=== PATIENT | female | born 1990 | race Caucasian/White ===

== ENCOUNTER 2016-10-15 02:02 | Emergency (ER) | payer OTHER ==
[~2016-10-15] VITALS: Ht 170.2 cm; Wt 124.0 kg
[~2016-10-15 02:02] MED LIST: ALBUTEROL2.5 MG/3 M IH; AMLODIPINE BESYL5 MG PO; ASPIRIN325 MG PO; BACTRIM,SEPT1 TABLET PO; BENTYL10 MG PO; CARAFATE1 GM PO; CIPRO500 MG PO; CLONAZEPAM0.5 MG PO; COMPAZINE10 MG PO; DELTASONE20 M1 PO; DEPO-PROVER150 MG/ML IM; EPIPEN ADU0.3 MG/0.3 IM; FLAGYL500 MG PO; FLEXERIL10 MG PO; INDOCIN25 MG PO; KLONOPIN0.5 M1 PO; LEVAQUIN500 MG PO; LISINOPRIL-HCT1 EAC3 PO; LISINOPRIL20 MG PO; LITHIUM CARBON450 MG PO; MEDROL DOSEPAK4 MG PO; METOCLOPRAMIDE10 MG PO; METOPROLOL SUCC50 MG PO; METOPROLOL TART25 MG PO; NORCO 5/3251 TABLET PO; ONDANSETRON ODT4 MG PO; OXAYDO5 MG PO; OXYCODONE HCL10 MG PO; PERCOCET 5/31 TABLET PO; PREDNISONE50 MG PO; PRILOSEC40 MG PO; PRINZIDE 20-121 EACH PO; PROAIR HFA8.5 GM IH; PROMETHAZINE HC25 M1 PO; PROPRANOLOL HCL80 M1 PO; PROTONIX40 MG PO; PROVENTIL HFA6.7 GM IH; SAPHRIS10 MG SL; SEROQUEL12.5 MG PO; SEROQUEL300 MG PO; SKELAXIN800 MG PO; TOPAMAX50 MG PO; TORADOL10 MG PO; TRAMADOL HCL50 MG PO; VALIUM5 MG PO; VENTOLIN HFA18 GM IH; WELLBUTRIN SR200 MG PO; WELLBUTRIN75 MG PO; ZOFRAN ODT4 MG PO; ZOFRAN ODT8 MG PO; ZOFRAN4 MG PO; ZOFRAN8 MG PO; [UNRECOGNIZED DRUG - REMARK]
[2016-10-15] MEDS ORDERED: PROMETHAZINE HC25 M1 PO (03:29)
[2016-10-15] MEDS ORDERED: ZITHROMAX250 MG PO (03:29)
[2016-10-15 04:30] VITALS: BP 178/88
== END 2016-10-15 05:04 | disposition home or self-care (01) ==
LOC: EXP 02:02 → EME 02:02 → EXP 05:04
DX: G43.909 Migraine, unspecified, not intractable, without status migrainosus (principal); K02.9 Dental caries, unspecified; I10 Essential (primary) hypertension; F17.200 Nicotine dependence, unspecified, uncomplicated; Z88.0 Allergy status to penicillin
CPT/HCPCS: 99281; 99284; J1885; J2550

== ENCOUNTER 2016-10-31 01:41 | Emergency (ER) | payer OTHER ==
[~2016-10-31] VITALS: Ht 167.6 cm; Wt 123.5 kg
[~2016-10-31 01:41] MED LIST changes: +ZITHROMAX250 MG PO
[2016-10-31 02:14] LABS: HEMATOCRIT 36.3 % (36.0-46.0); MCH 24.9 PG (29.0-34.0); MCHC 31.4 G/DL (30.0-36.0); MCV 79.3 FL (83-99); MEAN PLAT.VOLUME 10.3 uM^3 (9.5-12.4); PLATELET COUNT 358 K/uL (156-360); RBC DIS.WIDTH-CV 15.7 % (11.8-14.6); RBC DIS.WIDTH-SD 44.8 % (39-53); RED BLOOD COUNT 4.58 M/uL (3.80-5.20); WHITE BLOOD COUNT 10.5 K/uL (4.1-10.2)
[2016-10-31 02:25] LABS: CHLORIDE 108 mEq/L (99-109); POTASSIUM 3.8 mEq/L (3.7-5.4); SODIUM 140 mEq/L (136-147)
[2016-10-31 02:28] LABS: GLUCOSE 84 mg/dL (70-99)
[2016-10-31 02:29] LABS: ANION GAP 11 MEQ/L (2-14); TOTAL BILIRUBIN 0.2 mg/dL (0.0-1.0)
[2016-10-31 02:31] LABS: ALKALINE PHOSPHATASE 86 IU/L (3-129); GFR ESTIMATE (CALCULATED) > 59 mL/min/
[2016-10-31 02:32] LABS: UREA NITROGEN (BUN) 12 mg/dL (9-23)
[2016-10-31 02:39] LABS: ADD MIUA? YES; BILIRUBIN NEGATIVE; BLOOD NEGATIVE; COLOR YELLOW ((YELLOW)); GLUCOSE (STRIP) NEGATIVE; KETONES NEGATIVE; LEUKOCYTES NEGATIVE; NITRITE NEGATIVE; PROTEIN (STRIP) 30; SPECIFIC GRAVITY 1.033 (1.000-1.030); UROBILINOGEN 0.2 MG/DL (0.2-1.0)
[2016-10-31 02:41] LABS: QUANTITATIVE HCG < 4.0 MIU/ML
[2016-10-31 02:47] LABS: BACTERIA NONE SEEN /HPF; EPITHELIAL CELLS 2+ /HPF; MUCUS 4+ /LPF; RED BLOOD CELLS 0-5 /HPF (0-5); UCUL ADDED? NO; WHITE BLOOD CELLS 0-5 /HPF (0-5)
[2016-10-31 02:57] LABS: LIPASE 5 U/L (1.0-51.0)
[2016-10-31 03:00] VITALS: BP 179/118
[2016-10-31] MEDS ORDERED: ZOFRAN8 MG PO (03:29)
[2016-10-31] MEDS ORDERED: NORCO 5/3251 TABLET PO (03:29)
[2016-10-31] MEDS ORDERED: BENTYL20 MG PO (03:29)
== END 2016-10-31 05:29 | disposition home or self-care (01) ==
LOC: EME 01:41
DX: R10.11 Right upper quadrant pain (principal); R11.2 Nausea with vomiting, unspecified; E86.0 Dehydration; I10 Essential (primary) hypertension; F17.200 Nicotine dependence, unspecified, uncomplicated
CPT/HCPCS: 74177; 80053; 81003; 83690; 84702; 85027; 99281; 99285; J1885; J2270; J2405; J7030

== ENCOUNTER 2016-12-01 05:06 | Emergency (ER) | payer OTHER ==
[~2016-12-01] VITALS: Ht 167.6 cm; Wt 125.6 kg
[~2016-12-01 05:06] MED LIST changes: +BENTYL20 MG PO
[2016-12-01 05:38] LABS: ADD MIUA? YES; BILIRUBIN NEGATIVE; BLOOD NEGATIVE; COLOR YELLOW ((YELLOW)); GLUCOSE (STRIP) NEGATIVE; KETONES 5; LEUKOCYTES TRACE; NITRITE NEGATIVE; PROTEIN (STRIP) NEGATIVE; SPECIFIC GRAVITY 1.021 (1.000-1.030); UROBILINOGEN 0.2 MG/DL (0.2-1.0)
[2016-12-01 05:44] LABS: BACTERIA NONE SEEN /HPF; EPITHELIAL CELLS 1+ /HPF; MUCUS 1+ /LPF; RED BLOOD CELLS 0-5 /HPF (0-5); UCUL ADDED? NO; WHITE BLOOD CELLS 0-5 /HPF (0-5)
[2016-12-01 05:46] LABS: HEMATOCRIT 34.6 % (36.0-46.0); MCHC 31.2 G/DL (30.0-36.0); MCV 80.1 FL (83-99); PLATELET COUNT 355 K/uL (156-360); RBC DIS.WIDTH-CV 15.5 % (11.8-14.6); RBC DIS.WIDTH-SD 44.8 % (39-53); RED BLOOD COUNT 4.32 M/uL (3.80-5.20); WHITE BLOOD COUNT 7.7 K/uL (4.1-10.2)
[2016-12-01 06:00] LABS: CHLORIDE 106 mEq/L (99-109); POTASSIUM 3.9 mEq/L (3.7-5.4); SODIUM 138 mEq/L (136-147)
[2016-12-01 06:02] LABS: GLUCOSE 96 mg/dL (70-99)
[2016-12-01 06:03] LABS: ANION GAP 9 MEQ/L (2-14)
[2016-12-01 06:04] LABS: TOTAL BILIRUBIN 0.1 mg/dL (0.0-1.0)
[2016-12-01 06:06] LABS: ALKALINE PHOSPHATASE 73 IU/L (3-129); GFR ESTIMATE (CALCULATED) > 59 mL/min/
[2016-12-01 06:07] LABS: UREA NITROGEN (BUN) 10 mg/dL (9-23)
[2016-12-01 06:09] LABS: LIPASE 8 U/L (1.0-51.0)
[2016-12-01 06:15] LABS: QUANTITATIVE HCG < 4.0 MIU/ML
[2016-12-01] MEDS ORDERED: ZOFRAN ODT4 MG PO (06:38)
[2016-12-01 06:53] VITALS: BP 166/96
== END 2016-12-01 06:54 | disposition home or self-care (01) ==
LOC: EME 05:06
PROVIDERS: Emergency Medicine
DX: R10.9 Unspecified abdominal pain (principal); R11.2 Nausea with vomiting, unspecified; I10 Essential (primary) hypertension; K76.0 Fatty (change of) liver, not elsewhere classified; M79.7 Fibromyalgia; F17.200 Nicotine dependence, unspecified, uncomplicated
CPT/HCPCS: 80053; 81003; 83690; 84702; 85027; 99281; 99284

== ENCOUNTER 2016-12-17 16:27 | Emergency (ER) | payer OTHER ==
[~2016-12-17] VITALS: Ht 167.6 cm; Wt 125.0 kg
[2016-12-17 16:52] LABS: HEMATOCRIT 36.9 % (36.0-46.0); MCH 24.3 PG (29.0-34.0); MCHC 30.6 G/DL (30.0-36.0); MCV 79.4 FL (83-99); MEAN PLAT.VOLUME 9.9 uM^3 (9.5-12.4); PLATELET COUNT 326 K/uL (156-360); RBC DIS.WIDTH-CV 16.1 % (11.8-14.6); RBC DIS.WIDTH-SD 45.9 % (39-53); RED BLOOD COUNT 4.65 M/uL (3.80-5.20); WHITE BLOOD COUNT 9.1 K/uL (4.1-10.2)
[2016-12-17 17:04] LABS: CHLORIDE 107 mEq/L (99-109); POTASSIUM 4.1 mEq/L (3.7-5.4); SODIUM 138 mEq/L (136-147)
[2016-12-17 17:06] LABS: GLUCOSE 120 mg/dL (70-99)
[2016-12-17 17:07] LABS: ANION GAP 11 MEQ/L (2-14)
[2016-12-17 17:08] LABS: TOTAL BILIRUBIN 0.2 mg/dL (0.0-1.0)
[2016-12-17 17:09] LABS: ALKALINE PHOSPHATASE 66 IU/L (3-129)
[2016-12-17 17:10] LABS: GFR ESTIMATE (CALCULATED) > 59 mL/min/
[2016-12-17 17:11] LABS: UREA NITROGEN (BUN) 13 mg/dL (9-23)
[2016-12-17 17:13] LABS: LIPASE 3 U/L (1.0-51.0)
[2016-12-17 17:19] LABS: QUANTITATIVE HCG < 4.0 MIU/ML
[2016-12-17 17:23] LABS: ADD MIUA? YES; BILIRUBIN NEGATIVE; BLOOD NEGATIVE; COLOR YELLOW ((YELLOW)); GLUCOSE (STRIP) NEGATIVE; KETONES NEGATIVE; LEUKOCYTES MODERATE; NITRITE NEGATIVE; PROTEIN (STRIP) NEGATIVE; SPECIFIC GRAVITY 1.019 (1.000-1.030); UROBILINOGEN 0.2 MG/DL (0.2-1.0)
[2016-12-17 17:41] LABS: BACTERIA 2+ /HPF; CASTS NONE SEEN /LPF; CRYSTALS PRESENT; EPITHELIAL CELLS 3+ /HPF; MUCUS 1+ /LPF; RED BLOOD CELLS NONE SEEN /HPF (0-5); UCUL ADDED? YES
[2016-12-17 17:42] LABS: AMORPHOUS URATES CRYSTALS 2+
[2016-12-17] MEDS ORDERED: ZOFRAN ODT4 MG PO (18:52)
[2016-12-17] MEDS ORDERED: PERCOCET 5/31 TABLET PO (18:52)
[2016-12-17 19:23] VITALS: BP 175/99
== END 2016-12-17 19:25 | disposition home or self-care (01) ==
LOC: EME 16:27
DX: N83.202 Unspecified ovarian cyst, left side (principal); K57.90 Diverticulosis of intestine, part unspecified, without perforation or abscess without bleeding; R10.31 Right lower quadrant pain; I10 Essential (primary) hypertension; K76.0 Fatty (change of) liver, not elsewhere classified; Z88.0 Allergy status to penicillin; F17.200 Nicotine dependence, unspecified, uncomplicated
CPT/HCPCS: 74177; 80053; 81003; 83690; 84702; 85027; 87086; 99281; 99284; J1885; J2270; J2405; J3010; J7030

== ENCOUNTER 2016-12-24 01:11 | Observation (INO) | payer OTHER ==
[~2016-12-24] VITALS: Ht 167.6 cm; Wt 122.0 kg
[2016-12-24 01:49] LABS: HEMATOCRIT 37.2 % (36.0-46.0); MCH 24.5 PG (29.0-34.0); MCHC 30.9 G/DL (30.0-36.0); MCV 79.3 FL (83-99); MEAN PLAT.VOLUME 9.9 uM^3 (9.5-12.4); PLATELET COUNT 346 K/uL (156-360); RBC DIS.WIDTH-CV 16.1 % (11.8-14.6); RBC DIS.WIDTH-SD 46.6 % (39-53); RED BLOOD COUNT 4.69 M/uL (3.80-5.20); WHITE BLOOD COUNT 13.4 K/uL (4.1-10.2)
[2016-12-24 01:58] LABS: CHLORIDE 108 mEq/L (99-109); POTASSIUM 3.8 mEq/L (3.7-5.4); SODIUM 138 mEq/L (136-147)
[2016-12-24 02:00] LABS: GLUCOSE 177 mg/dL (70-99)
[2016-12-24 02:02] LABS: ANION GAP 12 MEQ/L (2-14)
[2016-12-24 02:04] LABS: ALKALINE PHOSPHATASE 72 IU/L (3-129); GFR ESTIMATE (CALCULATED) > 59 mL/min/
[2016-12-24 02:05] LABS: UREA NITROGEN (BUN) 11 mg/dL (9-23)
[2016-12-24 02:06] LABS: TOTAL BILIRUBIN 0.3 mg/dL (0.0-1.0)
[2016-12-24 02:07] LABS: LIPASE 4 U/L (1.0-51.0)
[2016-12-24 02:13] LABS: QUANTITATIVE HCG < 4.0 MIU/ML
[2016-12-24 02:39] LABS: ADD MIUA? YES; BILIRUBIN SMALL; BLOOD NEGATIVE; COLOR AMBER ((YELLOW)); GLUCOSE (STRIP) NEGATIVE; KETONES 5; LEUKOCYTES TRACE; NITRITE NEGATIVE; PROTEIN (STRIP) 30; SPECIFIC GRAVITY 1.033 (1.000-1.030)
[2016-12-24 03:12] LABS: RED BLOOD CELLS 0-5 /HPF (0-5); WHITE BLOOD CELLS 15-20 /HPF (0-5)
[2016-12-24 03:14] LABS: EPITHELIAL CELLS 2+ /HPF
[2016-12-24 03:15] LABS: BACTERIA 2+ /HPF; CALCIUM OXALATE CRYSTALS RARE /HPF; CASTS NONE SEEN /LPF; CRYSTALS PRESENT; MUCUS 2+ /LPF; UCUL ADDED? YES
[2016-12-24 04:42] LABS: ADD MIUA? NO; BILIRUBIN NEGATIVE; BLOOD NEGATIVE; COLOR YELLOW ((YELLOW)); GLUCOSE (STRIP) NEGATIVE; KETONES NEGATIVE; LEUKOCYTES NEGATIVE; NITRITE NEGATIVE; PROTEIN (STRIP) NEGATIVE; UCUL ADDED? NO; UROBILINOGEN 0.2 MG/DL (0.2-1.0)
[2016-12-24 04:52] LABS: ADD MEDTOX COMMENT Y; AMPHETAMINE PRESUMPTIVE POSITIVE (500 ng/mL); BARBITURATES NEGATIVE (200 ng/mL); BENZODIAZEPINES PRESUMPTIVE POSITIVE (150 ng/mL); COCAINE NEGATIVE (150 ng/mL); INTERNAL CONTROLS VALID? YES; METHADONE NEGATIVE (200 ng/mL); METHAMPHETAMINE NEGATIVE (500 ng/mL); OPIATES (MORPHINE) PRESUMPTIVE POSITIVE (100 ng/mL); OXYCODONE PRESUMPTIVE POSITIVE (100 ng/mL); PHENCYCLIDINE NEGATIVE (25 ng/mL); PROPOXYPHENE NEGATIVE (300 ng/mL); THC CANNABINOIDS PRESUMPTIVE POSITIVE (50 ng/mL); TRICYCLIC ANTIDEPRESSANTS NEGATIVE (300 ng/mL)
[2016-12-24 05:47] VITALS: BP 165/118
[2016-12-24 07:42] LABS: AMPHETAMINES QUANT VALUE 0 NG/ML; BENZODIAZEPINES QUANT VALUE 0 NG/ML
[2016-12-24 07:44] LABS: BENZODIAZEPINES, URINE SCREEN Negative (200 ng/mL)
== END 2016-12-24 05:48 | disposition left against medical advice (07) ==
LOC: EME 01:11 → EDOF 04:04
PROVIDERS: Emergency Medicine; Physician Assistant Medical
DX: A41.9 Sepsis, unspecified organism (principal); N39.0 Urinary tract infection, site not specified; K59.00 Constipation, unspecified; R10.9 Unspecified abdominal pain; K76.0 Fatty (change of) liver, not elsewhere classified; G89.29 Other chronic pain; M79.7 Fibromyalgia; K21.9 Gastro-esophageal reflux disease without esophagitis; I10 Essential (primary) hypertension; F19.90 Other psychoactive substance use, unspecified, uncomplicated; F31.9 Bipolar disorder, unspecified; G43.909 Migraine, unspecified, not intractable, without status migrainosus; F17.200 Nicotine dependence, unspecified, uncomplicated; E66.01 Morbid (severe) obesity due to excess calories; Z68.41 Body mass index [BMI] 40.0-44.9, adult
CPT/HCPCS: 74177; 80053; 81003; 83036; 83605; 83690; 84702; 84999; 85027; 87040; 87086; 93005; 99281; 99285; G0378; J2270; J2405; J3010; J7030; S0028

== ENCOUNTER 2017-03-01 22:15 | Emergency (ER) | payer SELFPAY ==
[~2017-03-01] VITALS: Ht 167.6 cm; Wt 120.6 kg
[2017-03-01 22:54] LABS: HEMATOCRIT 36.9 % (36.0-46.0); MCH 24.6 PG (29.0-34.0); MCHC 30.6 G/DL (30.0-36.0); MCV 80.4 FL (83-99); MEAN PLAT.VOLUME 9.5 uM^3 (9.5-12.4); PLATELET COUNT 358 K/uL (156-360); RBC DIS.WIDTH-CV 15.8 % (11.8-14.6); RBC DIS.WIDTH-SD 45.1 % (39-53); RED BLOOD COUNT 4.59 M/uL (3.80-5.20); WHITE BLOOD COUNT 11.3 K/uL (4.1-10.2)
[2017-03-01 23:01] LABS: CHLORIDE 106 mEq/L (99-109); POTASSIUM 3.8 mEq/L (3.7-5.4); SODIUM 141 mEq/L (136-147)
[2017-03-01 23:04] LABS: GLUCOSE 92 mg/dL (70-99)
[2017-03-01 23:06] LABS: ANION GAP 10 MEQ/L (2-14); TOTAL BILIRUBIN 0.2 mg/dL (0.0-1.0)
[2017-03-01 23:07] LABS: ALKALINE PHOSPHATASE 78 IU/L (3-129); GFR ESTIMATE (CALCULATED) > 59 mL/min/
[2017-03-01 23:08] LABS: UREA NITROGEN (BUN) 9 mg/dL (9-23)
[2017-03-01 23:20] LABS: LIPASE 6 U/L (1.0-51.0)
[2017-03-01 23:21] LABS: QUANTITATIVE HCG < 4.0 MIU/ML
[2017-03-01 23:26] LABS: ADD MIUA? YES; BILIRUBIN NEGATIVE; BLOOD NEGATIVE; COLOR YELLOW ((YELLOW)); GLUCOSE (STRIP) NEGATIVE; KETONES 5; LEUKOCYTES TRACE; NITRITE NEGATIVE; PROTEIN (STRIP) 30; SPECIFIC GRAVITY 1.023 (1.000-1.030)
[2017-03-01 23:52] VITALS: BP 144/85
[2017-03-01 23:52] LABS: BACTERIA 2+ /HPF; CASTS PRESENT /LPF; CRYSTALS PRESENT; EPITHELIAL CELLS 2+ /HPF; MUCUS 3+ /LPF; RED BLOOD CELLS NONE SEEN /HPF (0-5)
[2017-03-01 23:55] LABS: UCUL ADDED? NO; WHITE BLOOD CELLS 0-5 /HPF (0-5)
[2017-03-01 23:57] LABS: AMORPHOUS URATES CRYSTALS 1+; CALCIUM OXALATE CRYSTALS 2+ /HPF
[2017-03-02] MEDS ORDERED: ZOFRAN ODT4 MG PO (00:30)
[2017-03-02] MEDS ORDERED: PERCOCET 5/31 TABLET PO (00:30)
== END 2017-03-02 00:42 | disposition home or self-care (01) ==
LOC: EME 22:15
DX: R10.11 Right upper quadrant pain (principal); K92.0 Hematemesis; K76.9 Liver disease, unspecified; I10 Essential (primary) hypertension; J45.909 Unspecified asthma, uncomplicated; F17.200 Nicotine dependence, unspecified, uncomplicated
CPT/HCPCS: 74177; 80053; 81003; 83690; 84702; 85027; 99281; 99285; J2270; J2405; J7030

== ENCOUNTER → 2017-03-25 | Outpatient (CLI) | payer OTHER | END | disposition home or self-care (01) | LOC: CDC 11:31 | DX: M25.561 Pain in right knee (principal); T84.84XA Pain due to internal orthopedic prosthetic devices, implants and grafts, initial encounter; R94.31 Abnormal electrocardiogram [ECG] [EKG] | CPT/HCPCS: 93000 ==

== ENCOUNTER 2017-04-11 20:40 | Emergency (ER) | payer OTHER ==
[~2017-04-11] VITALS: Ht 167.6 cm; Wt 120.6 kg
[2017-04-11 21:29] LABS: ADD MIUA? YES; BILIRUBIN NEGATIVE; BLOOD NEGATIVE; COLOR YELLOW ((YELLOW)); GLUCOSE (STRIP) NEGATIVE; KETONES NEGATIVE; LEUKOCYTES TRACE; NITRITE NEGATIVE; PROTEIN (STRIP) 30; SPECIFIC GRAVITY 1.026 (1.000-1.030)
[2017-04-11 21:48] LABS: MCH 24.9 PG (29.0-34.0); MCHC 31.4 G/DL (30.0-36.0); MCV 79.3 FL (83-99); MEAN PLAT.VOLUME 9.7 uM^3 (9.5-12.4); PLATELET COUNT 388 K/uL (156-360); RBC DIS.WIDTH-CV 15.9 % (11.8-14.6); RBC DIS.WIDTH-SD 45.7 % (39-53); RED BLOOD COUNT 4.54 M/uL (3.80-5.20); WHITE BLOOD COUNT 9.5 K/uL (4.1-10.2)
[2017-04-11 21:58] LABS: CHLORIDE 109 mEq/L (99-109); POTASSIUM 3.9 mEq/L (3.7-5.4); SODIUM 140 mEq/L (136-147)
[2017-04-11 22:00] LABS: GLUCOSE 99 mg/dL (70-99)
[2017-04-11 22:01] LABS: ANION GAP 7 MEQ/L (2-14)
[2017-04-11 22:02] LABS: TOTAL BILIRUBIN 0.1 mg/dL (0.0-1.0)
[2017-04-11 22:04] LABS: ALKALINE PHOSPHATASE 72 IU/L (3-129); GFR ESTIMATE (CALCULATED) > 59 mL/min/
[2017-04-11 22:05] LABS: BACTERIA 2+ /HPF; CRYSTALS PRESENT; EPITHELIAL CELLS 1+ /HPF; MUCUS 3+ /LPF; RED BLOOD CELLS 0-5 /HPF (0-5); UCUL ADDED? YES; WHITE BLOOD CELLS 0-5 /HPF (0-5)
[2017-04-11 22:05] LABS: UREA NITROGEN (BUN) 9 mg/dL (9-23)
[2017-04-11 22:06] LABS: CALCIUM OXALATE CRYSTALS 1+ /HPF; CASTS PRESENT /LPF; FINE GRANULAR CASTS RARE /LPF; HYALINE CASTS 0-5 /LPF
[2017-04-11 22:13] LABS: QUANTITATIVE HCG < 4.0 MIU/ML
[2017-04-11] MEDS ORDERED: BACTRIM,SEPT1 TABLET PO (23:18)
[2017-04-11] MEDS ORDERED: MOTRIN800 MG PO (23:18)
[2017-04-11] MEDS ORDERED: ULTRAM50 MG PO (23:18)
[2017-04-11 23:57] VITALS: BP 156/118
== END 2017-04-12 00:02 | disposition home or self-care (01) ==
LOC: EME 20:40
PROVIDERS: Nurse Practitioner Family
DX: N39.0 Urinary tract infection, site not specified (principal); R10.9 Unspecified abdominal pain; R11.0 Nausea; I10 Essential (primary) hypertension; M79.7 Fibromyalgia; Z79.891 Long term (current) use of opiate analgesic; F17.200 Nicotine dependence, unspecified, uncomplicated
CPT/HCPCS: 74176; 80053; 81003; 84702; 85027; 87086; 99281; 99284

== ENCOUNTER 2017-04-17 02:29 | Emergency (ER) | payer OTHER ==
[~2017-04-17] VITALS: Ht 167.6 cm; Wt 124.2 kg
[~2017-04-17 02:29] MED LIST changes: +MOTRIN800 MG PO; +ULTRAM50 MG PO
[2017-04-17 02:45] LABS: ADD MIUA? NO; BILIRUBIN NEGATIVE; BLOOD NEGATIVE; COLOR STRAW ((YELLOW)); GLUCOSE (STRIP) NEGATIVE; KETONES NEGATIVE; LEUKOCYTES NEGATIVE; NITRITE NEGATIVE; PROTEIN (STRIP) NEGATIVE; SPECIFIC GRAVITY 1.005 (1.000-1.030); UCUL ADDED? NO; UROBILINOGEN 0.2 MG/DL (0.2-1.0)
[2017-04-17 02:47] LABS: HEMATOCRIT 33.1 % (36.0-46.0); MCH 24.5 PG (29.0-34.0); MCHC 30.5 G/DL (30.0-36.0); MCV 80.3 FL (83-99); MEAN PLAT.VOLUME 9.5 uM^3 (9.5-12.4); PLATELET COUNT 311 K/uL (156-360); RBC DIS.WIDTH-CV 16.1 % (11.8-14.6); RBC DIS.WIDTH-SD 46.7 % (39-53); RED BLOOD COUNT 4.12 M/uL (3.80-5.20)
[2017-04-17 02:59] LABS: CHLORIDE 108 mEq/L (99-109); POTASSIUM 3.7 mEq/L (3.7-5.4); SODIUM 142 mEq/L (136-147)
[2017-04-17 03:01] LABS: GLUCOSE 105 mg/dL (70-99)
[2017-04-17 03:02] LABS: ANION GAP 9 MEQ/L (2-14)
[2017-04-17 03:05] LABS: ALKALINE PHOSPHATASE 67 IU/L (3-129); GFR ESTIMATE (CALCULATED) > 59 mL/min/
[2017-04-17 03:06] LABS: UREA NITROGEN (BUN) 6 mg/dL (9-23)
[2017-04-17 03:14] LABS: QUANTITATIVE HCG < 4.0 MIU/ML
[2017-04-17 03:16] LABS: TOTAL BILIRUBIN 0.2 mg/dL (0.0-1.0)
[2017-04-17] MEDS ORDERED: ZOFRAN4 MG PO (06:21)
[2017-04-17] MEDS ORDERED: TRAMADOL HCL50 MG PO (06:21)
[2017-04-17 06:33] VITALS: BP 198/122
== END 2017-04-17 06:34 | disposition home or self-care (01) ==
LOC: EME 02:29
DX: R10.30 Lower abdominal pain, unspecified (principal); R10.31 Right lower quadrant pain; Z87.442 Personal history of urinary calculi; I10 Essential (primary) hypertension; F17.200 Nicotine dependence, unspecified, uncomplicated
CPT/HCPCS: 74176; 80053; 81003; 84702; 85027; 99281; 99283; J2270

== ENCOUNTER 2017-05-30 22:48 | Emergency (ER) | payer OTHER ==
[~2017-05-30] VITALS: Ht 162.6 cm; Wt 120.4 kg
[2017-05-31] MEDS ORDERED: NAPROSYN500 MG PO (01:03)
[2017-05-31 01:26] VITALS: BP 164/103
== END 2017-05-31 01:29 | disposition home or self-care (01) ==
LOC: EME 22:48 → RME 22:48
DX: M25.552 Pain in left hip (principal); M25.571 Pain in right ankle and joints of right foot; W18.30XA Fall on same level, unspecified, initial encounter; M79.7 Fibromyalgia; J45.909 Unspecified asthma, uncomplicated; I10 Essential (primary) hypertension; F17.200 Nicotine dependence, unspecified, uncomplicated; Z88.0 Allergy status to penicillin; Z88.8 Allergy status to other drugs, medicaments and biological substances
CPT/HCPCS: 72131; 73502; 73610; 74176; 84702; 99281; 99284

== ENCOUNTER 2017-07-12 21:30 | Emergency (ER) | payer OTHER ==
[~2017-07-12] VITALS: Ht 167.6 cm; Wt 122.4 kg
[~2017-07-12 21:30] MED LIST changes: +NAPROSYN500 MG PO
[2017-07-12 21:52] LABS: HEMATOCRIT 37.7 % (36.0-46.0); MCH 25.1 PG (29.0-34.0); MCV 80.7 FL (83-99); MEAN PLAT.VOLUME 9.9 uM^3 (9.5-12.4); PLATELET COUNT 399 K/uL (156-360); RBC DIS.WIDTH-CV 16.1 % (11.8-14.6); RBC DIS.WIDTH-SD 46.7 % (39-53); RED BLOOD COUNT 4.67 M/uL (3.80-5.20); WHITE BLOOD COUNT 9.3 K/uL (4.1-10.2)
[2017-07-12 22:04] LABS: ADD MIUA? YES; BILIRUBIN NEGATIVE; BLOOD NEGATIVE; COLOR YELLOW ((YELLOW)); GLUCOSE (STRIP) NEGATIVE; KETONES NEGATIVE; LEUKOCYTES SMALL; NITRITE NEGATIVE; PROTEIN (STRIP) NEGATIVE; SPECIFIC GRAVITY 1.013 (1.000-1.030); UROBILINOGEN 0.2 MG/DL (0.2-1.0)
[2017-07-12 22:06] LABS: CHLORIDE 108 mEq/L (99-109); POTASSIUM 3.4 mEq/L (3.7-5.4); SODIUM 141 mEq/L (136-147)
[2017-07-12 22:08] LABS: GLUCOSE 102 mg/dL (70-99)
[2017-07-12 22:09] LABS: ANION GAP 10 MEQ/L (2-14)
[2017-07-12 22:10] LABS: TOTAL BILIRUBIN 0.1 mg/dL (0.0-1.0)
[2017-07-12 22:11] LABS: ALKALINE PHOSPHATASE 69 IU/L (3-129)
[2017-07-12 22:12] LABS: GFR ESTIMATE (CALCULATED) > 59 mL/min/
[2017-07-12 22:13] LABS: UREA NITROGEN (BUN) 9 mg/dL (9-23)
[2017-07-12 22:19] LABS: BACTERIA RARE /HPF; EPITHELIAL CELLS 2+ /HPF; MUCUS TRACE /LPF; RED BLOOD CELLS 0-5 /HPF (0-5); UCUL ADDED? YES
[2017-07-12 22:20] LABS: QUANTITATIVE HCG 878.1 MIU/ML
[2017-07-13 01:42] VITALS: BP 150/106
[2017-07-13] MEDS ORDERED: ZOFRAN4 MG PO (01:42)
== END 2017-07-13 01:50 | disposition home or self-care (01) ==
LOC: EXP 21:30 → EME 21:30 → EXP 07-13 01:50
DX: O20.0 Threatened abortion (principal); I10 Essential (primary) hypertension; Z3A.01 Less than 8 weeks gestation of pregnancy; J45.909 Unspecified asthma, uncomplicated; F17.200 Nicotine dependence, unspecified, uncomplicated; Z88.0 Allergy status to penicillin; Z88.8 Allergy status to other drugs, medicaments and biological substances
CPT/HCPCS: 76801; 80053; 81003; 84702; 85027; 87086; 99281; 99284; J2270

== ENCOUNTER 2017-07-16 23:45 | Emergency (ER) | payer OTHER ==
[~2017-07-16] VITALS: Ht 167.6 cm; Wt 124.4 kg
[2017-07-17 00:42] LABS: HEMATOCRIT 35.6 % (36.0-46.0); MCH 25.7 PG (29.0-34.0); MCHC 31.7 G/DL (30.0-36.0); MCV 80.9 FL (83-99); MEAN PLAT.VOLUME 9.7 uM^3 (9.5-12.4); PLATELET COUNT 341 K/uL (156-360); RBC DIS.WIDTH-CV 15.8 % (11.8-14.6); WHITE BLOOD COUNT 10.1 K/uL (4.1-10.2)
[2017-07-17 00:51] LABS: CHLORIDE 106 mEq/L (99-109); SODIUM 137 mEq/L (136-147)
[2017-07-17 00:53] LABS: GLUCOSE 91 mg/dL (70-99)
[2017-07-17 00:54] LABS: ANION GAP 8 MEQ/L (2-14)
[2017-07-17 00:55] LABS: TOTAL BILIRUBIN 0.2 mg/dL (0.0-1.0)
[2017-07-17 00:56] LABS: ALKALINE PHOSPHATASE 65 IU/L (3-129)
[2017-07-17 00:57] LABS: GFR ESTIMATE (CALCULATED) > 59 mL/min/
[2017-07-17 00:58] LABS: UREA NITROGEN (BUN) 9 mg/dL (9-23)
[2017-07-17 01:08] LABS: QUANTITATIVE HCG 2985.1 MIU/ML
[2017-07-17 01:15] LABS: ADD MIUA? YES; BILIRUBIN NEGATIVE; BLOOD NEGATIVE; COLOR YELLOW ((YELLOW)); GLUCOSE (STRIP) NEGATIVE; KETONES NEGATIVE; LEUKOCYTES TRACE; NITRITE NEGATIVE; PROTEIN (STRIP) NEGATIVE; SPECIFIC GRAVITY 1.013 (1.000-1.030); UROBILINOGEN 0.2 MG/DL (0.2-1.0)
[2017-07-17 01:21] LABS: BACTERIA RARE /HPF; EPITHELIAL CELLS 2+ /HPF; HYALINE CASTS 0-5 /LPF; MUCUS 3+ /LPF; RED BLOOD CELLS 0-5 /HPF (0-5); UCUL ADDED? NO; WHITE BLOOD CELLS 0-5 /HPF (0-5)
[2017-07-17 02:32] LABS: LIPASE 6 U/L (1.0-51.0)
[2017-07-17] MEDS ORDERED: ZOFRAN ODT4 MG PO (04:47)
[2017-07-17 05:02] VITALS: BP 128/87
== END 2017-07-17 05:25 | disposition home or self-care (01) ==
LOC: EME 23:45
DX: O26.891 Other specified pregnancy related conditions, first trimester (principal); R10.84 Generalized abdominal pain; O21.9 Vomiting of pregnancy, unspecified; F11.23 Opioid dependence with withdrawal; Z3A.01 Less than 8 weeks gestation of pregnancy; O10.911 Unspecified pre-existing hypertension complicating pregnancy, first trimester; O99.511 Diseases of the respiratory system complicating pregnancy, first trimester; J45.909 Unspecified asthma, uncomplicated; M79.7 Fibromyalgia; O99.331 Smoking (tobacco) complicating pregnancy, first trimester; F17.200 Nicotine dependence, unspecified, uncomplicated; Z88.0 Allergy status to penicillin; Z88.8 Allergy status to other drugs, medicaments and biological substances
CPT/HCPCS: 76705; 76801; 80053; 81003; 83690; 84702; 85027; 99281; 99285; J2270; J2405; J7030

== ENCOUNTER 2017-07-17 10:54 | Emergency (ER) | payer OTHER ==
[~2017-07-17] VITALS: Ht 167.6 cm; Wt 124.4 kg
[2017-07-17 12:27] VITALS: BP 138/89
== END 2017-07-17 12:29 | disposition home or self-care (01) ==
LOC: EME 10:54
DX: O20.0 Threatened abortion (principal); O99.511 Diseases of the respiratory system complicating pregnancy, first trimester; J45.909 Unspecified asthma, uncomplicated; O16.1 Unspecified maternal hypertension, first trimester; O99.611 Diseases of the digestive system complicating pregnancy, first trimester; K76.0 Fatty (change of) liver, not elsewhere classified; O99.89 Other specified diseases and conditions complicating pregnancy, childbirth and the puerperium; M79.7 Fibromyalgia; O99.331 Smoking (tobacco) complicating pregnancy, first trimester; F17.200 Nicotine dependence, unspecified, uncomplicated; Z3A.01 Less than 8 weeks gestation of pregnancy; Z88.0 Allergy status to penicillin
CPT/HCPCS: 99281; 99284

== ENCOUNTER 2017-07-18 12:01 | Emergency (ER) | payer OTHER | END 2017-07-18 12:55 | disposition left against medical advice (07) | LOC: EME 12:01 | DX: O99.89 Other specified diseases and conditions complicating pregnancy, childbirth and the puerperium (principal); R10.30 Lower abdominal pain, unspecified; Z3A.01 Less than 8 weeks gestation of pregnancy; Z53.21 Procedure and treatment not carried out due to patient leaving prior to being seen by health care provider ==

== ENCOUNTER 2017-09-01 23:43 | Emergency (ER) | payer OTHER ==
[~2017-09-01] VITALS: Ht 167.6 cm; Wt 123.4 kg
[2017-09-02] VITALS: BP 191/127
== END 2017-09-02 00:13 | disposition left against medical advice (07) ==
LOC: EME 23:43
DX: R00.0 Tachycardia, unspecified (principal); I10 Essential (primary) hypertension; J06.9 Acute upper respiratory infection, unspecified; J45.909 Unspecified asthma, uncomplicated; M79.7 Fibromyalgia; K76.0 Fatty (change of) liver, not elsewhere classified; F17.200 Nicotine dependence, unspecified, uncomplicated; Z88.0 Allergy status to penicillin; Z88.8 Allergy status to other drugs, medicaments and biological substances
CPT/HCPCS: 80053; 81003; 83690; 84702; 85027; 87502; 87651 90; 99281

== ENCOUNTER 2017-09-13 11:11 | Emergency (ER) | payer OTHER ==
[~2017-09-13] VITALS: Ht 167.6 cm; Wt 120.5 kg
[2017-09-13 11:57] LABS: HEMATOCRIT 37.3 % (36.0-46.0); HEMOGLOBIN 11.7 G/DL (11.9-15.5); MCH 25.3 PG (29.0-34.0); MCHC 31.4 G/DL (30.0-36.0); MCV 80.7 FL (83-99); PLATELET COUNT 358 K/uL (156-360); RBC DIS.WIDTH-CV 15.8 % (11.8-14.6); RBC DIS.WIDTH-SD 46.3 % (39-53); RED BLOOD COUNT 4.62 M/uL (3.80-5.20); WHITE BLOOD COUNT 8.7 K/uL (4.1-10.2)
[2017-09-13 12:08] LABS: ALBUMIN 4.3 g/dL (3.2-4.8); CHLORIDE 110 mEq/L (99-109); POTASSIUM 4.5 mEq/L (3.7-5.4); SODIUM 141 mEq/L (136-147)
[2017-09-13 12:11] LABS: GLUCOSE 115 mg/dL (70-99); TOTAL PROTEIN 7.4 g/dL (6.4-8.3)
[2017-09-13 12:13] LABS: TOTAL BILIRUBIN 0.4 mg/dL (0.0-1.0)
[2017-09-13 12:14] LABS: ALKALINE PHOSPHATASE 60 IU/L (3-129); CREATININE 0.7 mg/dL (0.6-1.3); GFR ESTIMATE (CALCULATED) > 59 mL/min/
[2017-09-13 12:15] LABS: UREA NITROGEN (BUN) 9 mg/dL (9-23)
[2017-09-13 12:16] LABS: AST (GOT) 13 IU/L (2-34)
[2017-09-13 12:17] LABS: ALT (GPT) 9 IU/L (3-49)
[2017-09-13 12:23] LABS: QUANTITATIVE HCG < 4.0 MIU/ML
[2017-09-13 12:26] LABS: APPEARANCE SL.HAZY ((CLEAR)); BILIRUBIN NEGATIVE; BLOOD NEGATIVE; COLOR YELLOW ((YELLOW)); GLUCOSE (STRIP) NEGATIVE; KETONES NEGATIVE; LEUKOCYTES NEGATIVE; NITRITE NEGATIVE; PROTEIN (STRIP) NEGATIVE; SPECIFIC GRAVITY 1.023 (1.000-1.030); UROBILINOGEN 0.2 MG/DL (0.2-1.0)
[2017-09-13 12:31] LABS: BACTERIA RARE /HPF; CALCIUM OXALATE CRYSTALS 2+ /HPF; EPITHELIAL CELLS 1+ /HPF; MUCUS 2+ /LPF; RED BLOOD CELLS 0-5 /HPF (0-5); UCUL ADDED? NO; WHITE BLOOD CELLS 0-5 /HPF (0-5)
[2017-09-13 14:27] LABS: LIPASE 10 U/L (1.0-51.0)
[2017-09-13] MEDS ORDERED: MOTRIN800 MG PO (18:45)
[2017-09-13 19:01] VITALS: BP 147/86
== END 2017-09-13 19:02 | disposition home or self-care (01) ==
LOC: EME 11:11
DX: R10.31 Right lower quadrant pain (principal); R11.2 Nausea with vomiting, unspecified; I10 Essential (primary) hypertension; M79.7 Fibromyalgia; J45.909 Unspecified asthma, uncomplicated; K76.0 Fatty (change of) liver, not elsewhere classified; F17.200 Nicotine dependence, unspecified, uncomplicated; Z90.49 Acquired absence of other specified parts of digestive tract; Z88.0 Allergy status to penicillin; Z88.8 Allergy status to other drugs, medicaments and biological substances
CPT/HCPCS: 74177; 80053; 81003; 83690; 84702; 85027; J1630; J1885; J2405; J7030

== ENCOUNTER 2017-12-03 14:58 | Emergency (ER) | payer OTHER ==
[~2017-12-03] VITALS: Ht 167.6 cm; Wt 121.9 kg
[2017-12-03 15:19] LABS: HEMATOCRIT 38.3 % (36.0-46.0); HEMOGLOBIN 11.9 G/DL (11.9-15.5); MCH 25.3 PG (29.0-34.0); MCHC 31.1 G/DL (30.0-36.0); MCV 81.5 FL (83-99); PLATELET COUNT 352 K/uL (156-360); RBC DIS.WIDTH-CV 15.6 % (11.8-14.6); RBC DIS.WIDTH-SD 46.8 % (39-53); WHITE BLOOD COUNT 7.5 K/uL (4.1-10.2)
[2017-12-03 15:27] LABS: ALBUMIN 4.5 g/dL (3.2-4.8); CHLORIDE 108 mEq/L (99-109); POTASSIUM 4.8 mEq/L (3.7-5.4); SODIUM 141 mEq/L (136-147)
[2017-12-03 15:30] LABS: GLUCOSE 100 mg/dL (70-99); TOTAL PROTEIN 7.6 g/dL (6.4-8.3)
[2017-12-03 15:31] LABS: TOTAL BILIRUBIN 0.2 mg/dL (0.0-1.0)
[2017-12-03 15:33] LABS: ALKALINE PHOSPHATASE 65 IU/L (3-129); CREATININE 0.8 mg/dL (0.6-1.3); GFR ESTIMATE (CALCULATED) > 59 mL/min/
[2017-12-03 15:34] LABS: UREA NITROGEN (BUN) 9 mg/dL (9-23)
[2017-12-03 15:35] LABS: AST (GOT) 12 IU/L (2-34)
[2017-12-03 15:36] LABS: ALT (GPT) 8 IU/L (3-49)
[2017-12-03 15:42] LABS: QUANTITATIVE HCG < 4.0 MIU/ML
[2017-12-03 16:16] LABS: APPEARANCE SL.HAZY ((CLEAR)); BILIRUBIN NEGATIVE; BLOOD NEGATIVE; COLOR YELLOW ((YELLOW)); GLUCOSE (STRIP) NEGATIVE; KETONES NEGATIVE; LEUKOCYTES NEGATIVE; NITRITE NEGATIVE; PROTEIN (STRIP) NEGATIVE; SPECIFIC GRAVITY 1.017 (1.000-1.030); UROBILINOGEN 0.2 MG/DL (0.2-1.0)
[2017-12-03 16:24] LABS: BACTERIA NONE SEEN /HPF; EPITHELIAL CELLS 2+ /HPF; MUCUS TRACE /LPF; UCUL ADDED? NO; WHITE BLOOD CELLS 0-5 /HPF (0-5)
[2017-12-03] MEDS ORDERED: PERCOCET 5/31 TABLET PO (18:55)
[2017-12-03] MEDS ORDERED: BENTYL20 MG PO (18:55)
[2017-12-03 19:46] VITALS: BP 174/104
== END 2017-12-03 19:47 | disposition home or self-care (01) ==
LOC: EME 14:58
DX: R10.11 Right upper quadrant pain (principal); K76.0 Fatty (change of) liver, not elsewhere classified; M79.7 Fibromyalgia; I10 Essential (primary) hypertension; J45.909 Unspecified asthma, uncomplicated; F17.200 Nicotine dependence, unspecified, uncomplicated; Z90.49 Acquired absence of other specified parts of digestive tract; Z88.0 Allergy status to penicillin; Z88.8 Allergy status to other drugs, medicaments and biological substances
CPT/HCPCS: 76705; 80053; 81003; 84702; 85027; 99281; 99284; J3010

== ENCOUNTER 2018-01-12 05:35 | Day surgery (SDC) | payer OTHER ==
[~2018-01-12] VITALS: Ht 167.6 cm; Wt 120.6 kg
[~2018-01-12 05:35] MED LIST changes: +FLOVENT 11120 INHALA IH; +HYDROCHLOROTH12.5 M3 PO; +LAMICTAL200 MG PO; +SINGULAIR10 MG PO
[2018-01-12] MEDS ORDERED: IBUPROFEN800 MG PO (06:47)
[2018-01-12] MEDS ORDERED: ENDOCET 5-3251 EACH PO (06:47)
[2018-01-12 06:57] LABS: ALBUMIN 4.3 G/DL (3.2-4.8); ALKALINE PHOSPHATASE 57 IU/L (3-129); ALT (GPT) 7 IU/L (3-49); AST (GOT) 11 IU/L (2-34); CHLORIDE 106 MEQ/L (99-109); CREATININE 0.8 MG/DL (0.6-1.3); GFR ESTIMATE (CALCULATED) > 59 mL/min/; GLUCOSE 103 mg/dL (70-99); POTASSIUM 3.9 MEQ/L (3.7-5.4); SODIUM 138 MEQ/L (136-147); TOTAL BILIRUBIN 0.4 MG/DL (0.0-1.0); TOTAL PROTEIN 7.6 G/DL (6.4-8.3); UREA NITROGEN (BUN) 10 mg/dL (9-23)
[2018-01-12 07:11] VITALS: BP 172/106
[2018-01-12] MEDS ORDERED: METOPROLOL SUCC25 MG PO (07:23)
[2018-01-12 11:25] VITALS: BP 131/80
[2018-01-12 12:20] VITALS: BP 135/83
== END 2018-01-12 12:55 | disposition home or self-care (01) ==
LOC: SDC 05:35
PROVIDERS: Obstetrics & Gynecology Gynecology
PROC: 0WBN4ZX Excision of Female Perineum, Percutaneous Endoscopic Approach, Diagnostic (ICD-10-PCS; principal; 2018-01-12)
PROC: 3E1P88X Irrigation of Female Reproductive using Irrigating Substance, Via Natural or Artificial Opening Endoscopic, Diagnostic (ICD-10-PCS; principal; 2018-01-12)
PROC: 0DNU4ZZ Release Omentum, Percutaneous Endoscopic Approach (ICD-10-PCS; principal; 2018-01-12)
DX: K66.0 Peritoneal adhesions (postprocedural) (postinfection) (principal); N94.6 Dysmenorrhea, unspecified; R10.2 Pelvic and perineal pain; I10 Essential (primary) hypertension; E66.9 Obesity, unspecified; Z68.41 Body mass index [BMI] 40.0-44.9, adult; J45.909 Unspecified asthma, uncomplicated; Z88.0 Allergy status to penicillin; F17.200 Nicotine dependence, unspecified, uncomplicated
CPT/HCPCS: 80053; 88304; J0131; J0330; J1100; J1170; J1580; J1885; J2250; J2405; J2550; J2710; J3010; J7050; J7643; Q0175; S0020

== ENCOUNTER 2018-02-24 21:53 | Emergency (ER) | payer OTHER ==
[~2018-02-24] VITALS: Ht 167.6 cm; Wt 121.0 kg
[~2018-02-24 21:53] MED LIST changes: +ENDOCET 5-3251 EACH PO; +IBUPROFEN800 MG PO; +METOPROLOL SUCC25 MG PO
[2018-02-24 22:12] LABS: HEMATOCRIT 34.5 % (36.0-46.0); HEMOGLOBIN 11.3 G/DL (11.9-15.5); MCH 26.4 PG (29.0-34.0); MCHC 32.8 G/DL (30.0-36.0); MCV 80.6 FL (83-99); PLATELET COUNT 319 K/uL (156-360); RBC DIS.WIDTH-CV 15.8 % (11.8-14.6); RBC DIS.WIDTH-SD 46.2 % (39-53); RED BLOOD COUNT 4.28 M/uL (3.80-5.20); WHITE BLOOD COUNT 8.9 K/uL (4.1-10.2)
[2018-02-24 22:25] LABS: ALBUMIN 4.1 g/dL (3.2-4.8); CHLORIDE 107 mEq/L (99-109); POTASSIUM 3.7 mEq/L (3.7-5.4); SODIUM 141 mEq/L (136-147)
[2018-02-24 22:27] LABS: GLUCOSE 131 mg/dL (70-99)
[2018-02-24 22:28] LABS: TOTAL PROTEIN 6.9 g/dL (6.4-8.3)
[2018-02-24 22:29] LABS: TOTAL BILIRUBIN 0.1 mg/dL (0.0-1.0)
[2018-02-24 22:30] LABS: QUANTITATIVE HCG 171.6 MIU/ML
[2018-02-24 22:31] LABS: ALKALINE PHOSPHATASE 61 IU/L (3-129); CREATININE 0.8 mg/dL (0.6-1.3); GFR ESTIMATE (CALCULATED) > 59 mL/min/
[2018-02-24 22:32] LABS: UREA NITROGEN (BUN) 9 mg/dL (9-23)
[2018-02-24 22:33] LABS: AST (GOT) 12 IU/L (2-34)
[2018-02-24 22:34] LABS: ALT (GPT) 8 IU/L (3-49)
[2018-02-24 22:35] LABS: APPEARANCE CLOUDY ((CLEAR)); BILIRUBIN NEGATIVE; BLOOD NEGATIVE; COLOR YELLOW ((YELLOW)); GLUCOSE (STRIP) NEGATIVE; KETONES 5; LEUKOCYTES TRACE; NITRITE NEGATIVE; PROTEIN (STRIP) NEGATIVE; SPECIFIC GRAVITY 1.029 (1.000-1.030)
[2018-02-24 22:51] LABS: LIPASE 7 U/L (1.0-51.0)
[2018-02-24 23:27] LABS: RED BLOOD CELLS 0-5 /HPF (0-5)
[2018-02-24 23:28] LABS: EPITHELIAL CELLS NONE SEEN /HPF; MUCUS NONE SEEN /LPF
[2018-02-24 23:30] LABS: BACTERIA NONE SEEN /HPF; UCUL ADDED? YES
[2018-02-25] MEDS ORDERED: MACROBID100 MG PO (01:04)
[2018-02-25] MEDS ORDERED: OXAYDO5 MG PO (01:04)
[2018-02-25] MEDS ORDERED: PROMETHAZINE HC25 M1 PO (01:04)
[2018-02-25 01:35] VITALS: BP 151/115
== END 2018-02-25 01:36 | disposition home or self-care (01) ==
LOC: EME 21:53
DX: O23.41 Unspecified infection of urinary tract in pregnancy, first trimester (principal); Z3A.00 Weeks of gestation of pregnancy not specified; O21.9 Vomiting of pregnancy, unspecified; O10.911 Unspecified pre-existing hypertension complicating pregnancy, first trimester; O99.89 Other specified diseases and conditions complicating pregnancy, childbirth and the puerperium; K21.9 Gastro-esophageal reflux disease without esophagitis; M79.7 Fibromyalgia; O99.331 Smoking (tobacco) complicating pregnancy, first trimester; F17.200 Nicotine dependence, unspecified, uncomplicated; Z90.49 Acquired absence of other specified parts of digestive tract; Z87.442 Personal history of urinary calculi; Z88.0 Allergy status to penicillin; Z91.030 Bee allergy status
CPT/HCPCS: 76770; 76801; 80053; 81003; 83690; 84702; 85027; 87086; 99281; 99284; J2405; J3010; J7030

== ENCOUNTER 2018-03-03 01:56 | Emergency (ER) | payer OTHER ==
[~2018-03-03] VITALS: Ht 167.6 cm; Wt 121.3 kg
[~2018-03-03 01:56] MED LIST changes: +MACROBID100 MG PO
[2018-03-03 02:57] LABS: HEMOGLOBIN 11.3 G/DL (11.9-15.5); MCH 25.7 PG (29.0-34.0); MCHC 31.4 G/DL (30.0-36.0); MCV 81.8 FL (83-99); PLATELET COUNT 323 K/uL (156-360); RBC DIS.WIDTH-CV 15.9 % (11.8-14.6); RBC DIS.WIDTH-SD 47.4 % (39-53)
[2018-03-03 03:08] LABS: CHLORIDE 108 mEq/L (99-109); POTASSIUM 3.8 mEq/L (3.7-5.4); SODIUM 141 mEq/L (136-147)
[2018-03-03 03:08] LABS: APPEARANCE CLOUDY ((CLEAR)); BILIRUBIN NEGATIVE; BLOOD NEGATIVE; COLOR YELLOW ((YELLOW)); GLUCOSE (STRIP) NEGATIVE; KETONES NEGATIVE; LEUKOCYTES TRACE; NITRITE NEGATIVE; PROTEIN (STRIP) NEGATIVE; SPECIFIC GRAVITY 1.018 (1.000-1.030); UROBILINOGEN 0.2 MG/DL (0.2-1.0)
[2018-03-03 03:10] LABS: GLUCOSE 97 mg/dL (70-99)
[2018-03-03 03:13] LABS: BACTERIA NONE SEEN /HPF; EPITHELIAL CELLS 2+ /HPF; MUCUS TRACE /LPF; RED BLOOD CELLS 0-5 /HPF (0-5); UCUL ADDED? NO; WHITE BLOOD CELLS 0-5 /HPF (0-5)
[2018-03-03 03:14] LABS: CREATININE 0.8 mg/dL (0.6-1.3); GFR ESTIMATE (CALCULATED) > 59 mL/min/
[2018-03-03 03:15] LABS: UREA NITROGEN (BUN) 8 mg/dL (9-23)
[2018-03-03 03:24] LABS: QUANTITATIVE HCG 1539.8 MIU/ML
[2018-03-03] MEDS ORDERED: OXAYDO5 MG PO (07:10)
[2018-03-03 07:51] VITALS: BP 148/98
== END 2018-03-03 07:52 | disposition home or self-care (01) ==
LOC: EME 01:56
DX: O34.81 Maternal care for other abnormalities of pelvic organs, first trimester (principal); N83.201 Unspecified ovarian cyst, right side; O21.9 Vomiting of pregnancy, unspecified; G89.29 Other chronic pain; O10.911 Unspecified pre-existing hypertension complicating pregnancy, first trimester; O99.331 Smoking (tobacco) complicating pregnancy, first trimester; J45.909 Unspecified asthma, uncomplicated; Z87.442 Personal history of urinary calculi; F17.200 Nicotine dependence, unspecified, uncomplicated; Z3A.01 Less than 8 weeks gestation of pregnancy
CPT/HCPCS: 76801; 80048; 81003; 84702; 85027; 99281; 99285

== ENCOUNTER 2018-03-30 02:36 | Emergency (ER) | payer OTHER ==
[~2018-03-30] VITALS: Ht 167.6 cm; Wt 118.8 kg
[2018-03-30 03:22] LABS: BASOPHIL (%) 0.2 % (0-1); EOSINOPHIL (%) 1.7 % (0-5); EOSINOPHIL COUNT 0.2 K/uL (0-0.3); HEMOGLOBIN 10.5 G/DL (11.9-15.5); IMMATURE GRANULOCYTE (%) 0.2 % (0.0-0.7); LYMPHOCYTE (%) 30.4 % (15-42); LYMPHOCYTE COUNT 2.8 K/uL (1.0-2.8); MCH 26.7 PG (29.0-34.0); MCHC 32.8 G/DL (30.0-36.0); MCV 81.4 FL (83-99); MONOCYTE COUNT 0.6 K/uL (0-0.8); NEUTROPHIL (%) 61.5 % (45-76); NEUTROPHIL COUNT 5.6 K/uL (1.8-6.4); PLATELET COUNT 261 K/uL (156-360); RBC DIS.WIDTH-CV 15.9 % (11.8-14.6); RBC DIS.WIDTH-SD 47.5 % (39-53); RED BLOOD COUNT 3.93 M/uL (3.80-5.20); WHITE BLOOD COUNT 9.2 K/uL (4.1-10.2)
[2018-03-30 03:31] LABS: APPEARANCE SL.HAZY ((CLEAR)); BILIRUBIN SMALL; BLOOD NEGATIVE; COLOR AMBER ((YELLOW)); GLUCOSE (STRIP) NEGATIVE; KETONES 5; LEUKOCYTES NEGATIVE; NITRITE NEGATIVE; PROTEIN (STRIP) 30; SPECIFIC GRAVITY 1.046 (1.000-1.030)
[2018-03-30 03:31] LABS: ALBUMIN 3.7 g/dL (3.2-4.8); CHLORIDE 108 mEq/L (99-109); POTASSIUM 3.7 mEq/L (3.7-5.4); SODIUM 136 mEq/L (136-147)
[2018-03-30 03:34] LABS: GLUCOSE 147 mg/dL (70-99); TOTAL PROTEIN 6.5 g/dL (6.4-8.3)
[2018-03-30 03:36] LABS: TOTAL BILIRUBIN 0.1 mg/dL (0.0-1.0)
[2018-03-30 03:37] LABS: BACTERIA RARE /HPF; EPITHELIAL CELLS 3+ /HPF; MUCUS 4+ /LPF; RED BLOOD CELLS 0-5 /HPF (0-5); WHITE BLOOD CELLS 0-5 /HPF (0-5)
[2018-03-30 03:37] LABS: ALKALINE PHOSPHATASE 56 IU/L (3-129)
[2018-03-30 03:38] LABS: CREATININE 0.6 mg/dL (0.6-1.3); GFR ESTIMATE (CALCULATED) > 59 mL/min/
[2018-03-30 03:39] LABS: AST (GOT) 17 IU/L (2-34); DIRECT BILIRUBIN 0.1 mg/dL (0.0-0.3); UREA NITROGEN (BUN) 8 mg/dL (9-23)
[2018-03-30 03:40] LABS: ALT (GPT) 11 IU/L (3-49)
[2018-03-30 03:41] LABS: LIPASE 16 U/L (1.0-51.0)
[2018-03-30] MEDS ORDERED: ZOFRAN ODT4 MG PO (10:39)
[2018-03-30] MEDS ORDERED: TYLENOL EXTRA500 MG PO (10:39)
[2018-03-30 11:07] VITALS: BP 125/80
== END 2018-03-30 11:09 | disposition home or self-care (01) ==
LOC: EME 02:36
PROVIDERS: Physician Assistant
DX: O34.81 Maternal care for other abnormalities of pelvic organs, first trimester (principal); N83.201 Unspecified ovarian cyst, right side; O26.891 Other specified pregnancy related conditions, first trimester; R10.31 Right lower quadrant pain; R11.0 Nausea; O99.611 Diseases of the digestive system complicating pregnancy, first trimester; K21.9 Gastro-esophageal reflux disease without esophagitis; O99.332 Smoking (tobacco) complicating pregnancy, second trimester; F17.200 Nicotine dependence, unspecified, uncomplicated; O26.611 Liver and biliary tract disorders in pregnancy, first trimester; K76.9 Liver disease, unspecified; O10.911 Unspecified pre-existing hypertension complicating pregnancy, first trimester; Z3A.09 9 weeks gestation of pregnancy; Z87.442 Personal history of urinary calculi; Z90.49 Acquired absence of other specified parts of digestive tract; Z88.0 Allergy status to penicillin; Z88.8 Allergy status to other drugs, medicaments and biological substances
CPT/HCPCS: 74181; 76775; 76801; 80048; 80076; 81003; 83690; 84702; 85025; 99281; 99285; J1885; J2270; J2405; J3010; J7030

== ENCOUNTER 2018-04-06 19:57 | Emergency (ER) | payer OTHER ==
[~2018-04-06] VITALS: Ht 167.6 cm; Wt 117.8 kg
[~2018-04-06 19:57] MED LIST changes: +TYLENOL EXTRA500 MG PO
[2018-04-06 20:23] LABS: HEMATOCRIT 35.6 % (36.0-46.0); HEMOGLOBIN 11.6 G/DL (11.9-15.5); MCH 26.7 PG (29.0-34.0); MCHC 32.6 G/DL (30.0-36.0); MCV 81.8 FL (83-99); PLATELET COUNT 289 K/uL (156-360); RBC DIS.WIDTH-SD 48.3 % (39-53); RED BLOOD COUNT 4.35 M/uL (3.80-5.20); WHITE BLOOD COUNT 10.6 K/uL (4.1-10.2)
[2018-04-06 20:31] LABS: APPEARANCE SL.HAZY ((CLEAR)); BILIRUBIN NEGATIVE; BLOOD NEGATIVE; COLOR YELLOW ((YELLOW)); GLUCOSE (STRIP) NEGATIVE; KETONES 5; LEUKOCYTES NEGATIVE; NITRITE NEGATIVE; PROTEIN (STRIP) 30; SPECIFIC GRAVITY 1.027 (1.000-1.030)
[2018-04-06 20:32] LABS: CHLORIDE 106 mEq/L (99-109); POTASSIUM 3.7 mEq/L (3.7-5.4); SODIUM 137 mEq/L (136-147)
[2018-04-06 20:34] LABS: GLUCOSE 130 mg/dL (70-99); TOTAL PROTEIN 7.2 g/dL (6.4-8.3)
[2018-04-06 20:36] LABS: TOTAL BILIRUBIN 0.3 mg/dL (0.0-1.0)
[2018-04-06 20:38] LABS: ALKALINE PHOSPHATASE 54 IU/L (3-129); CREATININE 0.6 mg/dL (0.6-1.3); GFR ESTIMATE (CALCULATED) > 59 mL/min/
[2018-04-06 20:39] LABS: UREA NITROGEN (BUN) 6 mg/dL (9-23)
[2018-04-06 20:40] LABS: AST (GOT) 16 IU/L (2-34)
[2018-04-06 20:41] LABS: ALT (GPT) 15 IU/L (3-49)
[2018-04-06 20:48] LABS: BACTERIA 2+ /HPF; EPITHELIAL CELLS 1+ /HPF; MUCUS 2+ /LPF; RED BLOOD CELLS NONE SEEN /HPF (0-5); UCUL ADDED? YES; WHITE BLOOD CELLS NONE SEEN /HPF (0-5)
[2018-04-06 21:06] LABS: QUANTITATIVE HCG 42426.8 MIU/ML
[2018-04-06] MEDS ORDERED: ROXICODONE5 MG PO (22:42)
[2018-04-06] MEDS ORDERED: KEFLEX500 MG PO (22:42)
[2018-04-06 22:59] VITALS: BP 151/99
== END 2018-04-06 23:01 | disposition home or self-care (01) ==
LOC: EME 19:57
DX: O23.41 Unspecified infection of urinary tract in pregnancy, first trimester (principal); G89.29 Other chronic pain; O10.911 Unspecified pre-existing hypertension complicating pregnancy, first trimester; Z87.442 Personal history of urinary calculi; Z88.0 Allergy status to penicillin; O99.331 Smoking (tobacco) complicating pregnancy, first trimester; F17.200 Nicotine dependence, unspecified, uncomplicated; Z3A.10 10 weeks gestation of pregnancy
CPT/HCPCS: 76801; 80053; 81003; 84702; 85027; 87086; 99281; 99284